=== PATIENT | male | born 1955 | race Hispanic/Latino ===

== ENCOUNTER → 2020-11-19 | Day surgery (SDC) | payer OTHER ==
[2020-11-16 15:21] LABS: BASOPHILS % 0.4 % (0.0-1.0); EOSINOPHILS # (AUTO) 0.2 (0.0-0.4); EOSINOPHILS % 2.3 % (0.0-6.0); HEMATOCRIT 37.9 % (38.2-49.6); HEMOGLOBIN 12.6 g/dL (14.0-18.0); LYMPHOCYTES # (AUTO) 2.4 (1.0-3.2); LYMPHOCYTES % 34.8 % (18.0-39.1); MEAN CORPUSCULAR HGB CONC 33.2 g/dL (31-35); MEAN CORPUSCULAR VOLUME 93.1 fL (81-99); MONOCYTES # (AUTO) 0.5 (0.2-0.8); MONOCYTES % 6.5 % (4.4-11.3); NEUTROPHILS # (AUTO) 3.8 (2.1-6.9); NEUTROPHILS % 55.7 % (38.7-80.0); PLATELET COUNT 205 x10e3/uL (140-360); RED BLOOD COUNT 4.07 x10e6/uL (4.3-5.7); RED CELL DISTRIBUTION WIDTH 12.2 % (11.7-14.4)
[~2020-11-19] MED LIST: ALBUTEROL0.63 MG/3 NEB; ASPIRIN CHEW81 MG PO; CALCIUM PO; CLONAZEPAM1 MG PO; COMPLEX B-1001 EACH PO; DOXEPIN HCL25 MG PO; HYDROCHLOROTHIA25 MG PO; LIDOCAINE HCL 2% LOCAL INJ 5 ML SDV VIAL INJ ONE; LIPITOR10 MG PO; LOSARTAN POTAS100 MG PO; PROPOFOL IV EMULSION 10 MG/ML 20 ML VIAL ONE; VASCEPA1 GM PO; VIT D PO
[2020-11-19 08:05] VITALS: BP 112/74
== END | disposition home or self-care (01) ==
LOC: OR 05:59
PROVIDERS: ATTEND Internal Medicine Gastroenterology
DX: Z12.11 Encounter for screening for malignant neoplasm of colon (principal); K57.30 Diverticulosis of large intestine without perforation or abscess without bleeding; K64.8 Other hemorrhoids; Z71.3 Dietary counseling and surveillance; I10 Essential (primary) hypertension; E66.9 Obesity, unspecified; G47.33 Obstructive sleep apnea (adult) (pediatric); J45.909 Unspecified asthma, uncomplicated; K21.9 Gastro-esophageal reflux disease without esophagitis; E78.5 Hyperlipidemia, unspecified; Z88.0 Allergy status to penicillin; Z01.810 Encounter for preprocedural cardiovascular examination; Z01.812 Encounter for preprocedural laboratory examination; Z20.822 Contact with and (suspected) exposure to COVID-19; Z79.82 Long term (current) use of aspirin; Z68.30 Body mass index [BMI] 30.0-30.9, adult; Z80.0 Family history of malignant neoplasm of digestive organs
CPT/HCPCS: 36415; 45378; 85025; 93005; J2001; U0002

== ENCOUNTER → 2021-02-05 | Outpatient (CLI) | payer OTHER ==
[~2021-02-05] MED LIST changes: -LIDOCAINE HCL 2% LOCAL INJ 5 ML SDV VIAL INJ ONE; -PROPOFOL IV EMULSION 10 MG/ML 20 ML VIAL ONE
== END ==
LOC: DX 12:44
PROVIDERS: ATTEND Internal Medicine
DX: R13.14 Dysphagia, pharyngoesophageal phase (principal)
CPT/HCPCS: 74230

== ENCOUNTER 2021-03-22 10:53 | Outpatient (RCR) | payer OTHER | END 2021-03-23 | LOC: ST 10:53 | PROVIDERS: ATTEND Internal Medicine | DX: R13.13 Dysphagia, pharyngeal phase (principal); R05 Cough ==

== ENCOUNTER → 2021-04-01 | Outpatient (CLI) | payer OTHER | LOC: DX 12:41 | PROVIDERS: ATTEND Internal Medicine | DX: R13.13 Dysphagia, pharyngeal phase (principal) | CPT/HCPCS: 74230; U0002 ==

== ENCOUNTER 2021-04-21 11:00 | Outpatient (RCR) | payer OTHER | END 2021-04-22 | LOC: ST 11:00 | PROVIDERS: ATTEND Internal Medicine | DX: R13.13 Dysphagia, pharyngeal phase (principal) ==

== ENCOUNTER 2021-05-07 10:54 | Outpatient (RCR) | payer OTHER | END 2021-05-23 | LOC: ST 10:54 | PROVIDERS: ATTEND Internal Medicine | DX: R13.13 Dysphagia, pharyngeal phase (principal) ==

== ENCOUNTER → 2021-05-13 | Outpatient (CLI) | payer OTHER | LOC: DX 14:02 | PROVIDERS: ATTEND Internal Medicine | DX: R13.13 Dysphagia, pharyngeal phase (principal) | CPT/HCPCS: 74230; U0002 ==

== ENCOUNTER → 2025-01-09 | Outpatient (REF) | payer MEDICARE | LOC: RAD 13:37 | PROVIDERS: ATTEND Internal Medicine | DX: M25.511 Pain in right shoulder (principal) ==